=== PATIENT | male | born 1960 | race Caucasian/White ===

== ENCOUNTER 2019-07-28 14:53 | Outpatient (REF) | payer SELFPAY ==
[2019-07-28 16:35] LABS: Estmated Average Glucose 123; Hemoglobin A1C 5.9 % (4.0-6.0)
[2019-07-28 21:36] LABS: Chol HDL Ratio 6.32 mg/dL (1.0-5.00); Cholesterol 196 mg/dL (0-200); Glucose 87 mg/dL (65-115); HDL Cholesterol 31 mg/dL (60-100); LDL Cholesterol Calculated 117 mg/dL (50-129); LDL HDL Ratio 3.77 RATIO (0.00-3.22); Triglycerides 242 mg/dL (0-150)
== END 2019-07-28 14:54 | disposition home or self-care (01) ==
LOC: LAB 14:53
PROVIDERS: Family Provider Family Medicine; PCP Family Medicine; Visit Provider Dermatology
DX: Z13.9 Encounter for screening, unspecified (principal)
CPT/HCPCS: 80061; 82947; 83036

== ENCOUNTER 2019-11-16 15:43 | Outpatient (CLI) | payer BC, SELFPAY ==
--- NOTE | 2019-11-16 15:51 | XR_ITS ---
WS: [id number] XR KUB [id number] REASON FOR EXAM: KIDNEY STONE FINDINGS: The calcified stone on the right kidney is enlarged since previous exam now measures 2.32 c m. The left kidney was normal. There is no evidence of calcifications in the region of the ureter. The bladder was normal. 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
== END 2019-11-16 15:44 | disposition home or self-care (01) ==
PROVIDERS: PCP Family Medicine; Visit Provider Urology
DX: N20.0 Calculus of kidney (principal); N40.0 Benign prostatic hyperplasia without lower urinary tract symptoms; R97.20 Elevated prostate specific antigen [PSA]
CPT/HCPCS: 74018; 81001; 84153

== ENCOUNTER → 2019-12-30 16:42 | Outpatient (BNVA) | payer BC, SELFPAY | PROVIDERS: PCP Family Medicine; Visit Provider Nurse Practitioner | DX: J30.9 Allergic rhinitis, unspecified (principal); E87.8 Other disorders of electrolyte and fluid balance, not elsewhere classified; E78.5 Hyperlipidemia, unspecified; I10 Essential (primary) hypertension; E78.2 Mixed hyperlipidemia; R05 Cough | CPT/HCPCS: 71046; 80053; 80061 ==